=== PATIENT | male | born 1990 | race Two or more races ===

== ENCOUNTER → 2024-11-06 | Outpatient (CLI) | payer MEDICAID, SELFPAY ==
--- NOTE | 2024-11-06 13:50 | XR_ITS ---
Examination: Ribs, right, with PA chest, 5 views Technique: Chest PA, RIBS AP, RPO, LPO, AP coned lower ribs 5 views Exam date and time: November 06 2024 1406 hours INDICATIONS: Onset right lower anterior rib pain beginning 5 minutes ago Findings: No pneumothorax Normal heart size Significant osteopenia No acute rib fractures No cortical bone destruction involving the ribs IMPRESSION: No pneumothorax, pneumonia, or pleural disease Moderate osteopenia No acute rib fractures
== END | disposition home or self-care (01) ==
PROVIDERS: PCP Nurse Practitioner Primary Care; Referring Provider Physician Assistant; Visit Provider Physician Assistant
DX: M85.88 Other specified disorders of bone density and structure, other site (principal)
CPT/HCPCS: 71101

== ENCOUNTER → 2024-12-30 | Outpatient (CLI) | payer MEDICAID, SELFPAY ==
--- NOTE | 2024-12-30 10:30 | XR_ITS ---
Examination: MRI lumbar spine without contrast Date and time of exam: December 30, 2024 1138 hours INDICATIONS: Low back pain one year radiating down the right hip numbness in the left leg Technique: Multiple MRI axial and sagittal sections lumbar spine. Sagittal T2-weighted images, TR 3500, TE 118 T1 weighted transverse sections, TR 688 T8.5, T2-weighted sagittal sections T1 weighted sagittal sections TR 621, TE 30 T2 axial sections, TR 4, 190, TE 84. Findings: Adequate alignment lumbar vertebral bodies Disc desiccation L4-L5, L5-S1 Mild disc narrowing posteriorly L5-S1 No spondylolisthesis Normal marrow signal lumbar vertebral bodies L5-S1 5 mm partially extruded central paracentral disc, contiguous with the right and left S1 nerve roots L4-L5 4 mm central lumbar disc bulge with central posterior annular disc tear More cephalad levels are unremarkable IMPRESSION: L5-S1 5 mm partially extruded control paracentral disc contiguous with the right and left S1 nerve roots L4-L5 4 mm central lumbar disc bulge with posterior central annular disc tear
== END | disposition home or self-care (01) ==
LOC: SMRI 12-31 07:43
PROVIDERS: PCP Nurse Practitioner Primary Care; Referring Provider Nurse Practitioner Primary Care; Visit Provider Nurse Practitioner Primary Care
DX: M51.369 Other intervertebral disc degeneration, lumbar region without mention of lumbar back pain or lower extremity pain (principal); M51.27 Other intervertebral disc displacement, lumbosacral region
CPT/HCPCS: 72148

== ENCOUNTER → 2025-02-09 | Outpatient (CLI) | payer MEDICAID, SELFPAY ==
--- NOTE | 2025-02-09 11:30 | XR_ITS ---
Examination: Abdomen sonogram, complete Date and time of exam: February 09, 2025 1110 hrs. Indications: Right upper abdominal pain beginning one year ago. Technique: Multiple real-time grayscale transabdominal sonographic images of the abdomen have been obtained. Findings: Cholelithiasis Normal gallbladder wall Common bile duct 0.2 cm Pancreatic head 2.9 cm Liver normal hepatopedal flow 14.5 cm fatty infiltration no focal lesions Patent IVC Right kidney 10.5 cm cortex 1.7 cm Left kidney 12.8 cm cortex 2.3 cm Impression: Cholelithiasis, negative for cholecystitis Mild bilateral renal parenchymal scar formation
== END | disposition home or self-care (01) ==
PROVIDERS: PCP Nurse Practitioner Primary Care; Referring Provider Nurse Practitioner Primary Care; Visit Provider Nurse Practitioner Primary Care
DX: K80.20 Calculus of gallbladder without cholecystitis without obstruction (principal); N28.89 Other specified disorders of kidney and ureter
CPT/HCPCS: 76700

== ENCOUNTER 2025-04-15 10:35 | Emergency (ER) | payer MEDICAID, SELFPAY ==
[2025-04-15 10:35] VITALS: BMI 31.8
[2025-04-15 10:44] VITALS: BP 152/93; PULSE 87; RESP 18; TEMP 36.7; O2SAT 97
--- NOTE | 2025-04-15 10:53 | EDNOTE_ITS ---
<Statement entered by Palak Santos MD - 04/15/25 10:57> As co-signing physician, I was present and available for consult prn. I concur with the plan and care as documented by the midlevel provider. ED Skin Abcess FB-RME/HPI General Chief complaint: Skin/Abscess/Foreign Body Stated complaint: LEFT UPPER BACK AND CHEST RASH [id number] Source: patient Arrival date/time: 04/15/25 10:35 35-year-old male with no known medical history presents to the emergency room with a chief complaint of a rash to his left upper back and left chest x 1 week Mode of arrival: ambulatory Limitations: no limitations Related Data Previous Rx's ?Medication ?Instructions ?Recorded lidocaine 5 % topical patch 1 patch topical QDAY #15 e a 04/15/25 valacyclovir 1 gram tablet 1,000 mg PO Q8H 7 days #21 tabs 04/15/25 Allergies Allergy/AdvReac Type Severity Reaction Status Date / Time ceftriaxone Allergy Verified 04/15/25 10:38 Review of Systems Review of Systems Systems Reviewed: All systems reviewed, normal except as documented Constitutional Constitutional: Reports system reviewed and no additional complaints, except as documented, Denies fatigue, Denies fever(s), Denies headache(s) and Denies weakness Eyes Eyes: Reports system reviewed and no additional complaints, except as documented, Denies blurry vision and Denies change in vision ENT Ears, Nose, Mouth, and Throat: Reports system reviewed and no additional complaints, except as documented, Denies otalgia, Denies headache(s), Denies nasal congestion, Denies throat swelling and Denies vertigo Cardiovascular Cardiovascular: Reports system reviewed and no additional complaints, except as documented, Denies chest pain, Denies dyspnea and Denies dyspnea on exertion Respiratory Respiratory: Reports system reviewed and no additional complaints, except as documented, Denies chest congestion, Denies cough, Denies dyspnea, Denies dyspnea on exertion and Denies wheezing Gastrointestinal Gastrointestinal: Reports system reviewed and no additional complaints, except as documented, Denies abdominal pain, Denies cramping, Denies nausea and Denies vomiting Genitourinary Genitourinary: Reports system reviewed and no additional complaints, except as documented, Denies dysuria and Denies hematuria Musculoskeletal Musculoskeletal: Reports system reviewed and no additional complaints, except as documented and Denies back pain Integumentary/Breasts Skin/Breast: Reports system reviewed and no additional complaints, except as documented, Reports rash and Denies wounds Neurologic Neurologic: Reports system reviewed and no additional complaints, except as documented, Denies confusion, Denies headache(s), Denies lack of coordination, Denies vertigo and Denies weakness Psychiatric Psychiatric: Reports system reviewed and no additional complaints, except as documented, Denies anxiety, Denies confusion, Denies depression, Denies paranoia, Denies suicidal ideation and Denies tactile hallucinations Endocrine Endocrine: Reports system reviewed and no additional complaints, except as documented and Denies fatigue Hematologic/Lymphatic Hematologic/Lymphatic: Reports system reviewed and no additional complaints, except as documented and Denies lymphadenopathy Allergic/Immunologic Allergic/Immunologic: Reports system reviewed and no additional complaints, except as documented, Denies throat swelling, Denies urticaria and Denies wheezing ED Exam General Limitations: Present no limitations General appearance: Present alert and in no apparent distress Head Head exam: Present atraumatic Eye Eye exam: Present normal appearance, PERRL and EOMI ENT ENT exam: Present normal exam, normal oropharynx and mucous membranes moist Neck Neck exam: Present normal inspection, full ROM and trachea midline Chest Chest inspection: Present normal inspection, symmetric chest wall rise and rash Respiratory Respiratory exam: Present normal lung sounds bilaterally Cardiovascular Cardiovascular exam: Present regular rate, normal rhythm and normal heart sounds Abdominal Exam Abdominal exam: Present soft and normal bowel sounds Extremities Exam Extremities exam: Present normal inspection and full ROM Back Exam Back exam: Present normal inspection and full ROM Neurological Exam Neurological exam: Present alert, oriented X3 and CN II-XII intact Psychiatric Psychiatric exam: Present normal affect and normal mood Skin Skin exam: Present warm, dry, intact and normal color Expanded Skin Exam Type of lesion: Present rash Description: Present tenderness, erythematous, papular, vesicular and blisters Body image: 2 1. A group of clustered erythemic papules findings are consistent with shingles 2. A group of clustered erythemic papules findings are consistent with shingles Course Quality Measures none Vital Signs Vital signs: Vital Signs Temperature 98.1 F 04/15/25 10:44 Pulse Rate 87 04/15/25 10:44 Respiratory Rate 18 04/15/25 10:44 Blood Pressure 152/93 H 04/15/25 10:44 Pulse Oximetry (%) 97 04/15/25 10:44 Oxygen Delivery Method Room Air 04/15/25 10:44 Skin / Abscess / Foreign Body MDM Narrative MDM Narrative:: 35-year-old male with no known medical history presents to the emergency room with a chief complaint of a rash to his left upper back and left chest x 1 week Patient is hemodynamically stable and in no apparent distress Physical examination shows a erythemic cluster of vesicular rash to his left upper back and left chest x 1 week. Patient was seen by his primary care provider and discharged with the diagnosis of shingles. The findings are consistent with a shingles rash. The patient went sent medication as he said his primary care provider did not send him any. Patient was discharged and educated to follow-up with primary care provider in the next 24 to 48 hours and return to the emergency room for any evidence of worsening signs or symptoms Patient data External records reviewed:: [facility] previous records Clinical information provided by:: patient Social determinants that could affect healthcare access:: none Patient has the following chronic illnesses:: No chronic illness How is presenting disease/condition affected by chronic disease/condition?: no chronic disease Evaluation data The following diagnostics were reviewed and interpreted by me:: lab results and radiology exam(s) Lab and/or radiology exams considered but not ordered:: Labs and radiology exams considered and ordered Interpretation Summary: N/A Medications / Prescriptions Medications or Prescriptions considered but not ordered:: Rx given Medication administrations:: Rx given Consultations Consultation(s) initiated? (list below): No Diagnosis Skin/Abscess Differential Diagnosis: abscess of skin or subcutaneous tissue, herpes zoster, cellulitis and contact dermatitis Most likely diagnosis given after review of the tests above:: Herpes zoster Admission Indicated Admission indicated?: not indicated Admission Request Was there a request for admission?: No Disposition Plan Disposition Plan: Discharge Discharge Attestation Discharge Attestation: The patient and all family members were given an opportunity to ask questions and understood the discharge instructions. Discharge instructions specifically effects, indications for sooner follow up or return to the emergency department, and the expected course of current diagnosis. Patient condition: Stable Discharge Plan Plan Patient Disposition: HOME (Self Care) Discharge Disposition comment: Stable Prescriptions/Referrals Prescriptions/Med Rec: New valacyclovir 1 gram tablet 1,000 mg PO Q8H 7 Days Qty: 21 0RF lidocaine 5 % adhesive patch,medicated 1 patch topical QDAY Qty: 15 0RF Rx Instructions: leave on most painful area for up to 12 hrs Problem List Clinical Impression: Herpes zoster Patient/Caregiver Discharge Instructions Education Materials: Shingles (Herpes Zoster), ED Shingles (Herpes Zoster) Additional Instructions: Por favor, consulte con perez m?dico de cabecera en las pr?ximas 24 a 48 horas. El medicamento fue enviado a perez farmacia; rec?jalo y t?whelan seg?n lo indicado. Si observa cualquier signo de empeoramiento de los signos o s?ntomas, acuda a urgencias de inmediato. Print Language: Maori Stand Alone Forms: Micaela Award Info., Work/School Release, Patient Portal Info Letter PA/HARNESS INSTALLER Supervising Physician PA/HARNESS INSTALLER Supervising Physician: Dr. SANTOS
== END 2025-04-15 11:05 | disposition home or self-care (01) ==
LOC: SERX 11:12
PROVIDERS: Emergency Provider Emergency Medicine; PCP Nurse Practitioner Primary Care
DX: B02.9 Zoster without complications (principal)
CPT/HCPCS: 99281

== ENCOUNTER → 2025-06-25 | Outpatient (CLI) | payer MEDICAID, SELFPAY ==
--- NOTE | 2025-06-25 14:26 | XR_ITS ---
Examination: Lumbar spine 7 views TECHNIQUE: AP, lateral, coned lateral lower lumbar spine, lateral flexion, lateral extension, RPO, LPO 7 views Date and time: June 25, 2025 1435 hours INDICATIONS: Low back pain beginning 8 months ago. FINDINGS: Adequate alignment lumbar vertebral bodies Moderate degenerative disc disease L5-S1 Moderate reduced range of motion between flexion and extension IMPRESSION: Moderate degenerative disc disease L5-S1
== END | disposition home or self-care (01) ==
LOC: CDIM 13:44
PROVIDERS: PCP Nurse Practitioner Primary Care; Referring Provider Nurse Practitioner; Visit Provider Nurse Practitioner
DX: M51.370 Other intervertebral disc degeneration, lumbosacral region with discogenic back pain only (principal)
CPT/HCPCS: 72114

== ENCOUNTER → 2025-07-20 | Outpatient (CLI) | payer MEDICAID, SELFPAY ==
--- NOTE | 2025-07-20 14:30 | XR_ITS ---
Examination: Sinus series 3 views TECHNIQUE: Mikaela Vargas lateral sinus series 3 views Date and time: July 20, 2025 1434 hours INDICATIONS: Sinus pressure and pain months FINDINGS: Severe opacification frontal ethmoid and maxillary antral air cells minor opacity in the sphenoid air cells No fluid levels No cortical bone destruction IMPRESSION: Severe chronic frontal ethmoid maxillary antral sinusitis
== END | disposition home or self-care (01) ==
DX: J32.8 Other chronic sinusitis (principal)
CPT/HCPCS: 70220

== ENCOUNTER → 2025-08-23 | Outpatient (CLI) | payer MEDICAID, SELFPAY ==
--- NOTE | 2025-08-23 09:30 | XR_ITS ---
Examination: MRI abdomen, without contrast Date and time of exam: August 23, 2025, 0948 hours INDICATIONS: Right upper abdominal pain beginning one year ago Technique: Multiple axial sagittal and coronal images of the abdomen have been obtained with the Siemens high-resolution 1.5 [employer]ina MRI scanner. Images obtained include T2-weighted fat-suppressed sagittal sections, TR 3500, TE 46, T2 weighted coronal fat suppressed images, TR 3050, TE 84, T2-weighted transverse fat suppressed images, TR 3260, TE 63, proton density transverse images, TR 4720 TE 46, and T1 weighted coronal images, TR 560, TE 13. Findings: No focal liver lesions or intrahepatic biliary tract dilatation No gallstones. Gallbladder wall appears normal Common hepatic duct common bile duct 2 mm no stones No pancreatic edema or dilated pancreatic duct Spleen is not enlarged. No ascites No hydronephrosis Aorta normal size No adenopathy IMPRESSION: Normal gallbladder Normal common hepatic common bile duct Negative for pancreatic edema Negative for ascites
== END | disposition home or self-care (01) ==
LOC: SMRI 09:05
DX: R10.11 Right upper quadrant pain (principal)
CPT/HCPCS: 74181

== ENCOUNTER → 2025-10-20 | Outpatient (CLI) | payer MEDICAID, SELFPAY ==
--- NOTE | 2025-10-20 14:56 | XR_ITS ---
EXAMINATION: PA lateral chest 2 views TECHNIQUE: Upright PA lateral chest 2 views Date and time: October 20, 2025, 1519 hours, comparison November 06, 2024 INDICATION: Chest discomfort 1 week. FINDINGS: Normal heart size Lungs are clear The osseous structures are intact IMPRESSION: No active disease
== END | disposition home or self-care (01) ==
DX: R06.02 Shortness of breath (principal)
CPT/HCPCS: 71046